=== PATIENT | female | born 1985 | race African-American/Black ===

== ENCOUNTER 2020-08-03 19:33 | Emergency (ER) | payer SELFPAY ==
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
--- OUTSIDE RECORDS SUMMARY | 2020-08-03 19:36 | XMS REPORT | Continuity of Care Document ---
:1985 Author Organization [facility] t Address [address] [place] [address] Care Team Providers Name Role Phone Amanda Grace Attending Clinician Nellie Grace Admitting Clinician Problems Condition Condition Condition Status Onset Resolution Last Treating Co mments Source Name Details Category Date Date Treatment Clinician Date Diagnosis Active 2016-12-03 Me moria WKS 4- 12:30:00 l 15:00: Andra tellez WKS 00 Active 12/02/2016 [place] Patient Problem Active 2016-12-06 Deon randy currently 12-02 03:49:38 l Patient 00:00: Andra tellez (finding) currently 00 (finding) Active 12/02/2016 Problem 12/06/2016 [place] Type 2 Type 2 Problem Active [facility] diabetes Diabetes 2-02 da mellitus Mellitus 00:00: Medica l without without 00 Group complicati Complicati on on Contracept Problem Active 2012-082016-12-06 M emoria lexus IUD 10-11 03:49:38 l check 00:00: Rey (finding) Contracept 00 lexus IUD check (finding) Active 08/10/2013 Problem 12/06/2016 Data migrated from [facility] on 01/20/15. [place] Acute Problem Active 2011-082016-12-06 Otis arguelles periodonti 2 03:49:38 l tis Acute 00:00: Rey (disorder) periodonti 00 tis (disorder) Active 07/30/2012 Problem 12/06/2016 Data migrated from [facility] on 01/20/15. [place] Dental Problem Active 2011-082016-12-06 Memor ia caries 2-07 03:49:38 l (disorder) Dental 00:00: Herm erika caries 00 (disorder) Active 07/30/2012 Problem 12/06/2016 Data migrated from [facility] on 01/20/15. [place] Contracept Problem Active 2011-082016-12-06 M emoria ion care 0-22 03:49:38 l management 00:00: Rikki cook (procedure Contracept 00 ) ion care management (procedure ) Active 06/14/2012 Problem 12/06/2016 Data migrated from [facility] on 01/20/15. [place] Morbid Morbid Problem Active [place] [facility] Gestationa Problem Resolve 2016-12-06 Memoria l diabetes d 03:49:38 l mellitus [place] (disorder) Gestationa l diabetes mellitus (disorder) Resolved Problem 12/06/2016 [place] Allergies, Adverse Reactions, Alerts This patient has no known allergies or adverse reactions. Social History Smoking Status Start Date Stop Date Source Social History [facility] [place] Medications Ordered Filled Start Stop Current Ordering Indication Dosage Frequency Signature Comments Components Source Medication Medication Date Date Medication? Clinician (SIG) Name Name Acetaminoph No Notes: Do M emoria en 4-12 not exceed l 06:13: 4 gm/day. [place] 00 (Same as: Tylenol) 1 Yes 0 Memoria oral 4-12 Refill(s) l capsule 03:05: [place] 00 Calcium No 1,000 mL, Memor ia Chloride 4-12 Rate: 125 l 0.0014 03:04: ml/hr, Rey MEQ/ML / 00 Infuse Potassium over: 8 Chloride hr, Route: 0.004 IV, Dosing MEQ/ML / Weight Sodium 140.909 Chloride kg, Total 0.103 Volume: MEQ/ML / 1,000, Sodium Start Lactate date: 0.028 12/02/16 MEQ/ML 22:04:00 Injectable CDT, Solution Duration: 30 day, Stop date: 01/01/17 22:03:00 CDT Acetaminoph No 2 tab, Deon randy en 325 MG / 4-11 Route: PO, l Hydrocodone 23:53: Dosing Herm erika Bitartrate 00 Weight 5 MG Oral 140.909, Tablet kg, ONCE, [[place] Start 5/325] date: 12/02/16 18:53:00 CDT, Stop date: 12/02/16 18:53:00 CDT acyclovir acyclovir No 1 BID acyclovir [place] 400 mg 400 mg 400 mg da tablet Take tablet Take tablet Medical 1 tablet 1 tablet Take 1 Group twice a day twice a day tablet by oral by oral twice a route for route for day by 30 days. 30 days. oral route for 30 days. fluconazole fluconazole No 1 fluconazol [place] 150 mg 150 mg e 150 mg da tablet Take tablet Take tablet Medical 1 tablet 1 tablet Take 1 Group every 72 every 72 tablet hours by hours by every 72 oral route. oral route. hours by oral route. Mirena 20 Mirena 20 No 1device Mirena 20 [place] mcg/24 mcg/24 (s) mcg/24 da hours (5 hours (5 hours (5 Med ical yrs) 52 mg yrs) 52 mg yrs) 52 mg Group intrauterin intrauterin intrauteri e device e device ne device Take 1 Take 1 Take 1 device by device by device by intrauterin intrauterin intrauteri e route. e route. ne route. sertraline sertraline No sertraline [place] 25 mg 25 mg 25 mg da tablet Take tablet Take tablet Medical 1 tablet 1 tablet Take 1 Group every day every day tablet by oral by oral every day route. route. by oral route. valacyclovi valacyclovi No valacyclov [place] r 500 mg r 500 mg ir 500 mg da tablet Take tablet Take tablet Medical 1 tablet 1 tablet Take 1 Group every day every day tablet by oral by oral every day route for route for by oral 30 days. 30 days. route for 30 days. Vital Signs Vital Name Observation Time Observation Value Comments Source BP Diastolic 2019-10-18 00:00:00 90 mm[Hg] [facility] Height 2019-10-18 00:00:00 65 [in_i] [facility] BMI (Body Mass 2019-10-18 00:00:00 36.1 kg/m2 [facility] Medical Index) Group BP Systolic 2019-10-18 00:00:00 124 mm[Hg] [facility] Body Weight 2019-10-18 00:00:00 217 [lb_av] [facility] BP Diastolic 2019-07-25 00:00:00 88 mm[Hg] [facility] Height 2019-07-25 00:00:00 65 [in_i] [facility] BMI (Body Mass 2019-07-25 00:00:00 37.3 kg/m2 [facility] Medical Index) Group BP Systolic 2019-07-25 00:00:00 124 mm[Hg] [facility] Body Weight 2019-07-25 00:00:00 223.9 [lb_av] [facility] BP Diastolic 2019-05-24 00:00:00 86 mm[Hg] [facility] Height 2019-05-24 00:00:00 65 [in_i] [facility] BMI (Body Mass 2019-05-24 00:00:00 38.9 kg/m2 [facility] Medical Index) Group BP Systolic 2019-05-24 00:00:00 130 mm[Hg] [facility] Body Weight 2019-05-24 00:00:00 3737 [oz_av] [facility] BP Diastolic 2018-12-02 00:00:00 85 mm[Hg] [facility] Height 2018-12-02 00:00:00 65 [in_i] [facility] BMI (Body Mass 2018-12-02 00:00:00 49.3 kg/m2 [facility] Medical Index) Group BP Systolic 2018-12-02 00:00:00 131 mm[Hg] [facility] Body Weight 2018-12-02 00:00:00 296 [lb_av] [facility] BP Diastolic 2018-11-11 00:00:00 88 mm[Hg] [facility] Height 2018-11-11 00:00:00 65 [in_i] [facility] BMI (Body Mass 2018-11-11 00:00:00 50.6 kg/m2 [facility] Medical Index) Group BP Systolic 2018-11-11 00:00:00 143 mm[Hg] [facility] Body Weight 2018-11-11 00:00:00 303.8 [lb_av] [facility] Systolic (mm Hg) 2016-12-03 12:33:00 Deon rial [place] Diastolic (mm Hg) 2016-12-03 12:33:00 Mem orial [place] Respitory Rate 2016-12-03 12:33:00 Memori al [place] Temperature Oral (F) 2016-12-03 12:33:00 98.2 F [facility] [place] Systolic (mm Hg) 2016-12-03 11:15:00 Deon rial [place] Diastolic (mm Hg) 2016-12-03 11:15:00 Mem orial [place] Temperature Oral (F) 2016-12-03 11:15:00 97.8 F [facility] [place] Respitory Rate 2016-12-03 11:15:00 Memori al [place] Systolic (mm Hg) 2016-12-03 08:00:00 Deon rial [place] Diastolic (mm Hg) 2016-12-03 08:00:00 Mem orial [place] Respitory Rate 2016-12-03 08:00:00 Memori al [place] Temperature Oral (F) 2016-12-03 03:15:00 97.9 F [facility] [place] Weight 2016-12-03 03:05:00 [facility] Height 2016-12-03 03:05:00 165.1 cm [facility] [place] BMI Calculated 2016-12-03 03:05:00 Memori al [place] Heart Rate 2016-12-03 02:15:00 [facility] [place] Heart Rate 2016-12-03 01:20:00 [facility] [place] Heart Rate 2016-12-03 00:20:00 [facility] [place] Weight 2016-12-02 23:22:00 [facility] [place] Procedures Procedure Date / Time Performed Performing Clinician Jose Eduardo valdo US, transvaginal 2018-12-02 00:00:00 [facility] Caesarean Section 2017-01-15 00:00:00 [place] [facility] Encounters Start End Encounter Admission Attending Care Care Encounter Source Date/Time Date/Time Type Type Clinicians Facility Department ID 2019-10-18 2019-10-18 Isabelle [place] - [id number] Ryan galindo 00:00:00 00:00:00 Behzad Segundo, Medical Medica pari MD: [address] [facility] [address], [place] [address] , Ph. [phone] 2019-07-25 2019-07-25 Isabelle [facility] [place] - [id number] M at[place]or 00:00:00 00:00:00 Behzad Segundo Medical Medica pari MD: [address] [facility] [address], [place] [address] , Ph. [phone] 2019-05-24 2019-05-24 Roxi [facility] [place] - [id number] M atagor 00:00:00 00:00:00 [facility] aisha Mcdowell NP: [address] [facility] [address] [place] [address] , Ph. 2018-12-02 2018-12-02 Isabelle [facility] [place] - [id number] M at[place]or 00:00:00 00:00:00 Polo Deleon MD: [address] [facility] [address], [place] [address] , Ph. [phone] 2018-11-11 2018-11-11 Isabelle [facility] [place] - [id number] M at[place]or 00:00:00 00:00:00 Polo Deleon Medicbushra yañez MD: [address] [facility] [address], [place] [address] , Ph. [phone] 2016-12-02 2016-12-03 Outpatient RONAN Grace [facility] [id number] 875 18:07:00 09:40:00 [facility] Jahaira Ballard Results Test Description Test Time Test Comments Results Result Comments Source test, urine 2018-12-02 15:37:00 Test Item Value Reference Range Interpretation Comme nts Test (test code = Test) negative [facility] LB + [id number] 00:00:00 Test Item Value Reference Range Interpretation Comments HPV type-detect 3.0 by next gen not detected sequencing (reflex to HPV-16 risk assessment status) (test code = HPV type-detect 3.0 by next gen sequencing (reflex to HPV-16 risk assessment status)) General categories normal [interpretation] of Cervical or vaginal smear or scraping by Cyto stain (test code = 68508-6) [facility] + NG + TV, DNA, urine/[id number] 00:00:00 Test Item Value Reference Range Interpretation Comments chlamydia trachomatis by real-time negative PCR (reflex to azithromycin resistance by pyrosequencing) (test code = chlamydia trachomatis by real-time PCR (reflex to azithromycin resistance by pyrosequencing)) trichomonas vaginalis by real-time negative PCR (reflex to metronidazole resistance) (test code = trichomonas vaginalis by real-time PCR (reflex to metronidazole resistance)) neisseria gonorrhoeae by real-time negative PCR (reflex to antibiotic resistance by molecular analysis) (test code = neisseria gonorrhoeae by real-time PCR (reflex to antibiotic resistance by molecular analysis)) [id number] 02:02:00Negative (12/02/16 9:02 PM)[facility] [id number] 00:37:001.019[facility] [place] URINE AND [id number] 00:37:002[facility] [id number] 00:37:0034[facility] [id number] 00:37:00Negative (12/02/16 7:37 PM)[facility] [id number] 00:37:00Negative (12/02/16 7:37 PM)[facility] [id number] 00:37:005[facility] [id number] 00:37:00Negative (12/02/16 7:37 PM)[facility] [id number] 00:37:00Yellow *NA*(12/02/16 7:37 PM)[facility] [id number] 00:37:00Negative *NA*(12/02/16 7:37 PM)[facility] [id number] 00:37:007.0[facility] [id number] 00:37:00 Marked *ABN*(12/02/16 7:37 PM)[facility]
[2020-08-03 21:00] LABS: Urine Blood 2+ (NEG); Urine Glucose NEGATIVE (NEG); Urine Protein TRACE (NEG); Urine Specific Gravity 1.025 (1.005-1.030)
--- NOTE | 2020-08-03 21:40 | ER ---
Nurse's Notes [facility] Name: Leeann Kauffman Age: 34 yrs Sex: Female : 1985 Arrival Date: 08/03/2020 Time: 19:36 Bed 17 Private MD: Diagnosis: Dysuria;Urinary tract infection, site not specified Presentation: 08/03 19:39 Acuity: DONNIE 3 dm5 19:50 Chief complaint: Patient states: abdominal pain x 1 week, nauseated x 1 days, started em taking Cipro last night, pain with urination. Coronavirus screen: Client denies travel out of the [place] in the last 14 days. At this time, the client does not indicate any symptoms associated with coronavirus-19. Ebola Screen: Patient negative for fever greater than or equal to 101.5 degrees Fahrenheit, and additional compatible Ebola Virus Disease symptoms Patient denies exposure to infectious person. Patient denies travel to an Ebola-affected area in the 21 days before illness onset. No symptoms or risks identified at this time. Initial Sepsis Screen: Does the patient meet any 2 criteria? No. Patient's initial sepsis screen is negative. Does the patient have a suspected source of infection? Yes: Dysuria/Frequency/Urgency/UTI. Risk Assessment: Do you want to hurt yourself or someone else? Patient reports no desire to harm self or others. Onset of symptoms was July 27, 2020. 19:50 Method Of Arrival: Ambulatory em Historical: - Allergies: 19:54 NSAIDS; em Screenin:57 Abuse screen: Denies threats or abuse. Denies injuries from another. Nutritional sg screening: No deficits noted. Tuberculosis screening: No symptoms or risk factors identified. Never had TB. Fall Risk None identified. Assessment: 21:11 Reassessment: Patient appears in no apparent distress at this time. Patient and/or sg family updated on plan of care and expected duration. Pain level reassessed. Patient is alert, oriented x 3, equal unlabored respirations, skin warm/dry/pink. 21:48 Reassessment: pt states, " So, I um, work in healthcare and I didn't say anything sg because I thought I was going to get treated better, but evidently that's not the case, cause he () just came up in here for 2 mins and then talking about he needs to switch my antibiotics because I self diagnosed my condition and started taking my antibiotics that I had at my house." pt educated on completing prescribed abx, pt educated on the importance of taking abx that are going to treat specific bacteria, which is why culture and sensitivity tests are done. 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 Vital Signs: 19:50 BP 138 / 87; Pulse 79; Resp 18; Temp 98; Pulse Ox 100% ; Weight 99.34 kg; Height 5 ft. em 5 in. (165.10 cm); Pain 7/10; 21:57 BP 136 / 77; Pulse 75; Resp 18; Temp 98.1; Pulse Ox 100% on R/A; sg 19:50 Body Mass Index 36.44 (99.34 kg, 165.10 cm) em ED Course: 19:36 Patient arrived in ED. am2 19:39 Triage completed. dm5 19:39 Arm band placed on. sg 20:17 Maged Treviño MD is Attending Physician. tw4 21:00 Urine collected: sent to lab as umic is ordered. sg 21:05 Andrew Gunn, TIFFANIE is Primary Nurse. sg 21:11 Patient has correct armband on for positive identification. Bed in low position. Call sg light in reach. Side rails up X 1. Pulse ox on. NIBP on. Warm blanket given. Head of bed elevated. 21:57 No provider procedures requiring assistance completed. Patient did not have IV access sg during this emergency room visit. Administered Medications: No medications were administered Outcome: 21:40 Discharge ordered by . tw4 21:57 Discharged to home ambulatory. sg 21:57 Condition: good 21:57 Discharge instructions given to patient, Instructed on discharge instructions, follow up and referral plans. no drinking with medication, medication usage, safety practices, Demonstrated understanding of instructions, follow-up care, medications, Prescriptions given X 2. 21:58 Patient left the ED. sg Signatures: Maggie To, RN RN dm5 Andrew Gunn RN RN sg Gonzalo Peraza, RN RN Summer Verma am2 Maged Treviño MD MD tw4
--- NOTE | 2020-08-03 21:40 | EDPHYS ---
Physician Documentation [facility] Name: Leeann Kauffman Age: 34 yrs Sex: Female : 1985 Arrival Date: 08/03/2020 Time: 19:36 Bed 17 Private MD: ED Physician Maged Treviño HPI: 08/04 00:12 This 34 yrs old Black Female presents to ER via Ambulatory with complaints of Urinary tw4 Problem. 00:12 The patient presents with urinary symptoms, dysuria, frequency. Onset: The tw4 symptoms/episode began/occurred today. Modifying factors: The symptoms are alleviated by nothing, the symptoms are aggravated by nothing. Associated signs and symptoms: The patient has no apparent associated signs or symptoms. Severity of symptoms: At their worst the symptoms were mild, in the emergency department the symptoms are unchanged. The patient has not experienced similar symptoms in the past. Historical: - Allergies: 08/03 19:54 NSAIDS; em ROS: 08/04 00:12 Positive for urinary symptoms, urinary frequency. tw4 Constitutional: Negative for fever, chills, and weight loss, Eyes: Negative for injury, pain, redness, and discharge, Cardiovascular: Negative for chest pain, palpitations, and edema, Respiratory: Negative for shortness of breath, cough, wheezing, and pleuritic chest pain, Abdomen/GI: Negative for abdominal pain, nausea, vomiting, diarrhea, and constipation, Back: Negative for injury and pain, MS/Extremity: Negative for injury and deformity, Skin: Negative for injury, rash, and discoloration, Neuro: Negative for headache, weakness, numbness, tingling, and seizure. Exam: 00:12 Constitutional: This is a well developed, well nourished patient who is awake, alert, tw4 and in no acute distress. Head/Face: Normocephalic, atraumatic. Chest/axilla: Normal chest wall appearance and motion. Nontender with no deformity. No lesions are appreciated. Cardiovascular: Regular rate and rhythm with a normal S1 and S2. No gallops, murmurs, or rubs. Normal PMI, no JVD. No pulse deficits. Respiratory: Lungs have equal breath sounds bilaterally, clear to auscultation and percussion. No rales, rhonchi or wheezes noted. No increased work of breathing, no retractions or nasal flaring. Abdomen/GI: Soft, non-tender, with normal bowel sounds. No distension or tympany. No guarding or rebound. No evidence of tenderness throughout. Back: No spinal tenderness. No costovertebral tenderness. Full range of motion. Skin: Warm, dry with normal turgor. Normal color with no rashes, no lesions, and no evidence of cellulitis. MS/ Extremity: Pulses equal, no cyanosis. Neurovascular intact. Full, normal range of motion. Neuro: Awake and alert, GCS 15, oriented to person, place, time, and situation. Cranial nerves II-XII grossly intact. Motor strength 5/5 in all extremities. Sensory grossly intact. Cerebellar exam normal. Normal gait. Vital Signs: 08/03 19:50 BP 138 / 87; Pulse 79; Resp 18; Temp 98; Pulse Ox 100% ; Weight 99.34 kg; Height 5 ft. em 5 in. (165.10 cm); Pain 7/10; 21:57 BP 136 / 77; Pulse 75; Resp 18; Temp 98.1; Pulse Ox 100% on R/A; sg 19:50 Body Mass Index 36.44 (99.34 kg, 165.10 cm) em MDM: 21:27 Patient medically screened. 08/04 00:12 Data reviewed: vital signs, nurses notes. Data interpreted: Pulse oximetry: 4 Interpretation: normal. Counseling: I had a detailed discussion with the patient and/or guardian regarding: the historical points, exam findings, and any diagnostic results supporting the discharge/admit diagnosis. Special discussion: I discussed with the patient/guardian in detail that at this point there is no indication for admission to the hospital. It is understood, however, that if the symptoms persist or worsen the patient needs to return immediately for re-evaluation. 02:55 Differential diagnosis: urinary tract infection. 08/03 20:56 Order name: Urine Microscopic Only; Complete Time: 21:50 08/03 21:50 Interpretation: Normal except: SQEPI 10-20; UBACT 20-50; URBC 10-20; UWBC 5-10. tw4 08/03 20:58 Order name: Urine Dipstick--Ancillary (enter results); Complete Time: 21:50 5 08/03 21:50 Interpretation: Normal except: U NIT POSITIVE; UBLD 2+. tw4 08/03 20:19 Order name: Urine Dipstick-Ancillary (obtain specimen); Complete Time: 20:58 tw4 08/03 20:19 Order name: Urine Test (obtain specimen); Complete Time: 20:58 tw4 08/03 20:58 Order name: Urine --Ancillary (enter results) dm5 08/03 21:50 Order name: Urine Culture EDMS Administered Medications: No medications were administered Disposition: 08/03/20 21:40 Discharged to Home. Impression: Dysuria, Urinary tract infection, site not specified. - Condition is Stable. - Discharge Instructions: Urinary Tract Infection, Adult. - Prescriptions for Pyridium 200 mg Oral Tablet - take 1 tablet by ORAL route every 8 hours for 3 days; 9 tablet. Macrobid 100 mg Oral Capsule - take 1 capsule by ORAL route every 12 hours for 10 days; 20 capsule. - Medication Reconciliation Form, Thank You Letter, Antibiotic Education, Prescription Opioid Use form. - Follow up: Private Physician; When: Upon discharge from the Emergency Department; Reason: Recheck today's complaints, Continuance of care, Re-evaluation by your physician. - Problem is new. - Symptoms are unchanged. Signatures: Dispatcher [employer] EDTX Andrew Gunn RN RN sg Munoz, Edgar, RN RN em Wadley, Terrence, MD MD tw4 Corrections: (The following items were deleted from the chart) 08/03 21:58 21:40 08/03/2020 21:40 Discharged to Home. Impression: Dysuria; Urinary tract sg infection, site not specified. Condition is Stable. Forms are Medication Reconciliation Form, Thank You Letter, Antibiotic Education, Prescription Opioid Use. Follow up: Private Physician; When: Upon discharge from the Emergency Department; Reason: Recheck today's complaints, Continuance of care, Re-evaluation by your physician. Problem is new. Symptoms are unchanged. tw4
[2020-08-03 21:48] LABS: Urine Bacteria 20-50 /HPF (<20); Urine Mucus 2+ /HPF (NONE SEEN)
[2020-08-03] MEDS ORDERED: NITROFURAN MACRO 100 MG CAP PO ONE (22:06)
[2020-08-08 09:12] VITALS: BP 138/87; TEMP 98; O2SAT 100
== END 2020-08-03 21:58 | disposition home or self-care (01) ==
LOC: ER 19:33
DX: N39.0 Urinary tract infection, site not specified (principal); Z88.6 Allergy status to analgesic agent
CPT/HCPCS: 81003; 81015; 81025; 87086; 87088; 99283